=== PATIENT | male | born 1995 | race Caucasian/White ===

== ENCOUNTER 2023-10-24 13:59 | Emergency (ER) | payer MEDICAID ==
[~2023-10-24] VITALS: Ht 185.4 cm; Wt 78.0 kg
[2023-10-24] MEDS ORDERED: ACETAMINOPHEN ES 500 MG TABLET ONE (14:29)
[2023-10-24] MEDS: ACETAMINOPHEN ES 500 MG TABLET PO ONE (14:32)
[2023-10-24] MEDS: IV NS 0.9% 1,000 ML BAG IV ONE (14:37)
[2023-10-24 14:58] LABS: EOSINOPHILS # (AUTO) 0.1 K/uL (0.0-0.7); EOSINOPHILS % (AUTO) 1.4 % (0.0-6.0); HEMATOCRIT 42 % (39-51); HEMOGLOBIN 14.2 g/dL (13.5-17.5); LYMPHOCYTES # (AUTO) 0.5 K/uL (0.8-4.8); LYMPHOCYTES % (AUTO) 12.6 % (20.0-44.0); MEAN CORPUSCULAR HEMOGLOBIN 30 PG (26.0-33.0); MEAN CORPUSCULAR HGB CONC 34 g/dl (31.0-36.0); MEAN CORPUSCULAR VOLUME 88 fL (80-96); MONOCYTES # (AUTO) 0.8 K/uL (0.1-1.30); MONOCYTES % (AUTO) 19.1 % (2.0-12.0); NEUTROPHILS # (AUTO) 2.6 K/uL (1.8-8.9); NEUTROPHILS % (AUTO) 65.9 % (43.0-81.0); PLATELET COUNT (AUTO) 103 K/uL (150-450); RED BLOOD CELL COUNT(AUTO) 4.81 MIL/uL (4.5-6.0); RED CELL DISTRIBUTION WIDTH 14.9 % (11.5-15.0)
[2023-10-24 15:14] LABS: LACTIC ACID 1.5 mmol/L (0.4-2.0)
[2023-10-24 15:18] LABS: POTASSIUM 3.8 mmol/L (3.5-5.1)
[2023-10-24 15:23] LABS: ALBUMIN 3.4 g/dL (3.4-5.0); BILIRUBIN,DIRECT 0.1 mg/dL (0.0-0.2); BILIRUBIN,TOTAL 0.4 mg/dL (0.2-1.0); TOTAL PROTEIN, SERUM 8.3 g/dL (6.4-8.2)
[2023-10-24 16:23] LABS: MONOTEST NEGATIVE (NEGATIVE)
[2023-10-24 16:29] LABS: EOSINOPHILS % (MANUAL) 3 % (0-4); LYMPHOCYTES % (MANUAL) 14 % (16-48); MONOCYTES % (MANUAL) 18 % (0-11.0); NEUTROPHILS % (MANUAL) 65 (42-76); PLATELET ESTIMATE DECREASED
[2023-10-24 16:32] LABS: ANISOCYTOSIS 1+; STOMATOCYTES 1+
[2023-10-24 17:16] LABS: APPEARANCE,URINE Clear (CLEAR); BILIRUBIN,URINE SMALL (NEGATIVE); BLOOD, URINE Moderate Ery/uL (NEGATIVE); COLOR,URINE YELLOW (YELLOW); KETONES,URINE Negative (NEGATIVE); LEUKOCYTE ESTERASE ,URINE Trace (NEGATIVE); NITRITE, URINE Negative (NEGATIVE); PH,URINE 6.5 (5.0-8.0); PROTEIN,URINE 30 mg/dl (NEGATIVE); UGLUCOSE Negative (NEGATIVE)
[2023-10-24 17:43] LABS: ADD URINE CULTURE NO; BACTERIA,URINE Few /HPF (None Seen)
[2023-10-24 17:44] LABS: MUCUS,URINE Few /LPF (None Seen); URINE AMORPHOUS URATE Few /HPF (None Seen)
[2023-10-24] MEDS ORDERED: ACET-2605 PO (18:32)
[2023-10-24 18:52] VITALS: BP 110/70; TEMP 98.6; O2SAT 97
== END 2023-10-24 18:55 | disposition home or self-care (01) ==
LOC: ER 14:07
DX: R55 Syncope and collapse (principal); E86.0 Dehydration; R51.9 Headache, unspecified; R05.9 Cough, unspecified; R50.9 Fever, unspecified; F17.210 Nicotine dependence, cigarettes, uncomplicated; Z20.822 Contact with and (suspected) exposure to COVID-19
CPT/HCPCS: 99285; 96360; 71045; 99406; 87426; 93005; 85025; 80048; 87040 ×2; 87086; 83605; 80076; 86308; 81001; 36415; 85007; J7030 ×2